=== PATIENT | female | born 1970 | race Caucasian/White ===

== ENCOUNTER → 2024-11-30 15:11 | Outpatient (REF) | payer BC, SELFPAY | LOC: WDC 15:11 | PROVIDERS: ATTENDING PHYSICIAN Nurse Practitioner Family; FAMILY PHYSICIAN Nurse Practitioner Pediatrics | DX: Z12.31 Encounter for screening mammogram for malignant neoplasm of breast (principal); R73.01 Impaired fasting glucose | CPT/HCPCS: 76775; 77063; 77067 ==